=== PATIENT | female | born 2005 | race Caucasian/White ===

== ENCOUNTER → 2024-02-13 | Outpatient (CLI) | payer OTHER | LOC: M LAB 11:22 | PROVIDERS: ATTEND Advanced Practice Midwife | DX: O36.80X1 Pregnancy with inconclusive fetal viability, fetus 1 (principal); Z3A.00 Weeks of gestation of pregnancy not specified ==

== ENCOUNTER → 2024-02-20 | Outpatient (REF) | payer OTHER | LOC: M LAB REF 18:05 | PROVIDERS: ATTEND Physician Assistant | DX: B34.9 Viral infection, unspecified (principal) ==